=== PATIENT | male | born 1970 | race Caucasian/White ===

== ENCOUNTER 2019-11-28 12:24 | Emergency (ER) | payer MEDICAID ==
[~2019-11-28] VITALS: Ht 170.2 cm; Wt 83.5 kg
[2019-11-28] MEDS ORDERED: LIDOcaine 1% W/epiNEPHrine 1:200,000 10ml vial IJ ONE (13:25)
[2019-11-28] MEDS ORDERED: DOXY100C77 PO (13:29)
[2019-11-28] MEDS ORDERED: predniSONE 20 mg tablet PO ONE (13:35)
[2019-11-28 14:19] VITALS: BP 134/86
== END 2019-11-28 14:20 | disposition home or self-care (01) ==
LOC: ER 12:26
DX: L03.114 Cellulitis of left upper limb (principal)
CPT/HCPCS: 10060; 99283